=== PATIENT | female | born 1965 | race Caucasian/White ===

== ENCOUNTER 2020-04-10 10:52 | Emergency (ER) | payer BC ==
[~2020-04-10 10:52] MED LIST: KEFLEX CAP 500500 MG PO
[2020-04-10] MEDS ORDERED: MOBIC15 MG PO (15:57)
== END 2020-04-10 16:25 | disposition home or self-care (01) ==
LOC: ER1 10:52
DX: S80.12XA Contusion of left lower leg, initial encounter (principal); S80.11XA Contusion of right lower leg, initial encounter; M79.662 Pain in left lower leg; K58.9 Irritable bowel syndrome, unspecified; Z79.899 Other long term (current) drug therapy; Z88.1 Allergy status to other antibiotic agents; W01.0XXA Fall on same level from slipping, tripping and stumbling without subsequent striking against object, initial encounter; Y92.009 Unspecified place in unspecified non-institutional (private) residence as the place of occurrence of the external cause
CPT/HCPCS: 73590; 93971; 99284